=== PATIENT | female | born 1995 | race Caucasian/White ===

== ENCOUNTER 2019-01-14 21:43 | Inpatient (IN) | payer MEDICAID, OTHER ==
[2019-01-15] MEDS: ONDANSETRON 4 MG INJ IV ×3 (00:16→01:02)
[2019-01-15 00:39] LABS: ADD MAN DIFF? NO
[2019-01-15 00:40] LABS: ABNORMAL IP MESSAGE 1; BASOPHIL # 0.2 10^3/ul (0.0-0.1); BASOPHILS % 0.6 % (0.0-2.0); EOSINOPHILS # 0.1 10^3/ul (0.0-0.5); EOSINOPHILS % 0.4 % (0.0-7.0); HEMATOCRIT 33.2 % (37.0-47.0); HEMOGLOBIN 10.9 g/dl (12.0-16.0); LYMPHOCYTES # 4.6 10^3/ul (0.8-2.9); LYMPHOCYTES % 15.2 % (15.0-51.0); MEAN CORPUSCULAR HEMOGLOBIN 29.5 pg (29.0-33.0); MEAN CORPUSCULAR HGB CONC 32.8 g/dl (32.0-37.0); MEAN CORPUSCULAR VOLUME 89.7 fl (82.0-101.0); MEAN PLATELET VOLUME 11.5 fl (7.4-10.4); MONOCYTE # 1.6 10^3/ul (0.3-0.9); MONOCYTES % 5.4 % (0.0-11.0); NEUTROPHIL # 22.9 10^3/ul (1.6-7.5); NEUTROPHILS % 75.9 % (39.0-77.0); PLATELET COUNT 334 10^3/UL (140-415)
[2019-01-15 00:40] LABS: WHITE BLOOD COUNT 30.2 10^3/ul (4.8-10.8)
[2019-01-15 00:46] LABS: ALANINE AMINOTRANSFERASE 21 IU/L (13-69); ALBUMIN/GLOBULIN RATIO 1.66; ALKALINE PHOSPHATASE 50 IU/L (42-121); ANION GAP 20 (5-13); ASPARTATE AMINO TRANSFERASE 19 IU/L (15-46); BILIRUBIN,INDIRECT 0.3 mg/dl (0-1.1); BILIRUBIN,TOTAL 0.3 mg/dl (0.2-1.3); BLOOD UREA NITROGEN 10 mg/dl (7-20); CALCIUM 8.8 mg/dl (8.4-10.2); CARBON DIOXIDE 17 mmol/L (21-31); CHLORIDE 101 mmol/L (97-110); CREATININE 1.33 mg/dl (0.44-1.00); Estimated GFR 50 mL/min (>60); GLUCOSE 353 mg/dl (70-220); LIPASE 64 U/L (23-300); SODIUM 138 mmol/L (135-144); TOTAL PROTEIN 6.4 g/dl (6.1-8.1)
[2019-01-15] MEDS: SOD CHLORIDE 0.9% 1,000 ML IV ×4 (00:47→22:32)
[2019-01-15 00:50] LABS: POSITIVE DIFF @See below
[2019-01-15] MEDS: PIPER-TAZO 3.375 GM IV (PMX) 100 ML IVPB (01:55)
[2019-01-15] MEDS ORDERED: NORepinephrine 8MG/250 ML (PMX 250 ML (02:40)
[2019-01-15] MEDS: NORepinephrine 8MG/250 ML (PMX 250 ML IV (02:56)
[2019-01-15] MEDS: POTASSIUM CHLORIDE 100 ML IVPB (02:58)
[2019-01-15] MEDS ORDERED: FENTAnyl 50 MCG/ML VIAL ×3 (03:04→05:54)
[2019-01-15] MEDS ORDERED: ROCURONIUM 50 MG INJ (03:04)
[2019-01-15] MEDS ORDERED: PROPOFOL 20 ML (03:04)
[2019-01-15] MEDS ORDERED: GLYCOPYRROLATE 0.4 MG INJ (03:04)
[2019-01-15] MEDS ORDERED: CEFAZOLIN 1 GM INJ (03:04)
[2019-01-15] MEDS ORDERED: NEOSTIGMINE 3 MG/3 ML SYRINGE (03:04)
[2019-01-15] MEDS ORDERED: DEXAMETHASONE 4 MG/ML 5 ML INJ (03:05)
[2019-01-15] MEDS ORDERED: MIDAZOLAM 1 MG/ML 2 ML INJ (03:05)
[2019-01-15] MEDS ORDERED: ONDANSETRON 4 MG INJ (03:05)
[2019-01-15 03:43] LABS: IMMEDIATE SPIN CROSSMATCH 1 6
[2019-01-15] MEDS ORDERED: ROPIVACAINE 0.5 % 30 ML VIAL (04:02)
[2019-01-15] MEDS ORDERED: ALBUMIN HUMAN 5% 500 ML (04:10)
[2019-01-15] MEDS ORDERED: SUGAMMADEX SODIUM 200 MG/2 ML VIAL IV (05:40)
[2019-01-15 08:20] LABS: ADD MAN DIFF? NO
[2019-01-15 08:46] LABS: ANION GAP 4 (5-13); BLOOD UREA NITROGEN 8 mg/dl (7-20); CALCIUM 7.1 mg/dl (8.4-10.2); CARBON DIOXIDE 21 mmol/L (21-31); CHLORIDE 114 mmol/L (97-110); CREATININE 0.61 mg/dl (0.44-1.00); Estimated GFR > 60 mL/min (>60); GLUCOSE 112 mg/dl (70-220); POTASSIUM 4.7 mmol/L (3.5-5.1); SODIUM 139 mmol/L (135-144)
[2019-01-15 08:56] LABS: WHITE BLOOD COUNT 19.7 10^3/ul (4.8-10.8)
[2019-01-15 08:56] LABS: BASOPHILS % 0.2 % (0.0-2.0); HEMATOCRIT 32.7 % (37.0-47.0); HEMOGLOBIN 11.3 g/dl (12.0-16.0); LYMPHOCYTES # 1.3 10^3/ul (0.8-2.9); LYMPHOCYTES % 6.7 % (15.0-51.0); MEAN CORPUSCULAR HEMOGLOBIN 29.8 pg (29.0-33.0); MEAN CORPUSCULAR HGB CONC 34.6 g/dl (32.0-37.0); MEAN CORPUSCULAR VOLUME 86.3 fl (82.0-101.0); MEAN PLATELET VOLUME 10.8 fl (7.4-10.4); MONOCYTE # 0.9 10^3/ul (0.3-0.9); MONOCYTES % 4.3 % (0.0-11.0); NEUTROPHIL # 17.3 10^3/ul (1.6-7.5); NEUTROPHILS % 87.7 % (39.0-77.0); RED BLOOD COUNT 3.79 10^6/ul (4.20-5.40); RED CELL DISTRIBUTION WIDTH 13.7 % (11.5-14.5)
[2019-01-15 08:57] LABS: PLATELET COUNT 104 10^3/UL (140-415); POSITIVE DIFF @See below
[2019-01-15] MEDS: HYDROmorphONE 1 MG/ML SYG IV ×5 (09:52→22:02)
[2019-01-16] MEDS: HYDROmorphONE 1 MG/ML SYG IV ×6 (02:23→20:55)
[2019-01-16] MEDS: SOD CHLORIDE 0.9% 1,000 ML IV ×3 (06:11→23:00)
[2019-01-16 06:18] LABS: ADD MAN DIFF? NO
[2019-01-16 06:23] LABS: BASOPHILS % 0.2 % (0.0-2.0); HEMATOCRIT 23.9 % (37.0-47.0); HEMOGLOBIN 8.1 g/dl (12.0-16.0); LYMPHOCYTES # 2.4 10^3/ul (0.8-2.9); LYMPHOCYTES % 18.6 % (15.0-51.0); MEAN CORPUSCULAR HEMOGLOBIN 29.7 pg (29.0-33.0); MEAN CORPUSCULAR HGB CONC 33.9 g/dl (32.0-37.0); MEAN CORPUSCULAR VOLUME 87.5 fl (82.0-101.0); MEAN PLATELET VOLUME 11.2 fl (7.4-10.4); MONOCYTE # 1.1 10^3/ul (0.3-0.9); MONOCYTES % 8.8 % (0.0-11.0); NEUTROPHIL # 9.1 10^3/ul (1.6-7.5); PLATELET COUNT 106 10^3/UL (140-415); RED BLOOD COUNT 2.73 10^6/ul (4.20-5.40); RED CELL DISTRIBUTION WIDTH 14.1 % (11.5-14.5)
[2019-01-16 06:23] LABS: WHITE BLOOD COUNT 12.7 10^3/ul (4.8-10.8)
[2019-01-16 06:45] LABS: ALANINE AMINOTRANSFERASE 18 IU/L (13-69); ALBUMIN 2.7 g/dl (3.3-4.9); ALKALINE PHOSPHATASE 44 IU/L (42-121); ANION GAP 6 (5-13); ASPARTATE AMINO TRANSFERASE 24 IU/L (15-46); BILIRUBIN,INDIRECT 0.5 mg/dl (0-1.1); BILIRUBIN,TOTAL 0.5 mg/dl (0.2-1.3); BLOOD UREA NITROGEN 6 mg/dl (7-20); CALCIUM 7.8 mg/dl (8.4-10.2); CARBON DIOXIDE 25 mmol/L (21-31); CHLORIDE 110 mmol/L (97-110); Estimated GFR > 60 mL/min (>60); GLUCOSE 81 mg/dl (70-220); MAGNESIUM 1.8 mg/dl (1.7-2.5); POTASSIUM 3.7 mmol/L (3.5-5.1); SODIUM 141 mmol/L (135-144); TOTAL PROTEIN 4.8 g/dl (6.1-8.1)
[2019-01-16 07:13] LABS: ADD UMIC YES; UR ASCORBIC ACID NEGATIVE (NEGATIVE); UR BILIRUBIN (Dip) NEGATIVE (NEGATIVE); UR BLOOD (Dip) 1+ mg/dL (NEGATIVE); UR CLARITY CLEAR (CLEAR); UR COLOR STRAW (YELLOW); UR GLUCOSE (Dip) NEGATIVE (NEGATIVE); UR KETONES (Dip) 2+ mg/dL (NEGATIVE); UR LEUKOCYTE ESTERASE (Dip) NEGATIVE Leu/ul (NEGATIVE); UR MUCUS FEW /HPF (NONE SEEN); UR NITRITE (Dip) NEGATIVE (NEGATIVE); UR RBC 1 /HPF (0-5); UR SPECIFIC GRAVITY (Dip) 1.014 (1.003-1.030); UR TOTAL PROTEIN (Dip) NEGATIVE (NEGATIVE); UR UROBILINOGEN (Dip) NEGATIVE (NEGATIVE); UR WBC 4 /HPF (0-5)
[2019-01-16] MEDS: metroNIDAZOLE 500 MG/NS (PMX) 100 ML IVPB ×2 (15:31→20:54)
[2019-01-16] MEDS: FAMOTIDINE 20 MG INJ IV (15:31)
[2019-01-16] MEDS: CIPROFLOXACIN 400MG/D5W 200 ML IVPB (17:09)
[2019-01-16] MEDS: DIPHENHYDRAMINE 50 MG INJ IV (18:47)
[2019-01-17] MEDS: metroNIDAZOLE 500 MG/NS (PMX) 100 ML IVPB ×2 (06:09→13:32)
[2019-01-17] MEDS: SOD CHLORIDE 0.9% 1,000 ML IV ×4 (06:09→22:10)
[2019-01-17 06:18] LABS: ADD MAN DIFF? NO
[2019-01-17 06:20] LABS: BASOPHIL # 0.1 10^3/ul (0.0-0.1); BASOPHILS % 0.5 % (0.0-2.0); EOSINOPHILS # 0.1 10^3/ul (0.0-0.5); EOSINOPHILS % 0.7 % (0.0-7.0); HEMATOCRIT 24.3 % (37.0-47.0); HEMOGLOBIN 8.2 g/dl (12.0-16.0); LYMPHOCYTES # 2.2 10^3/ul (0.8-2.9); LYMPHOCYTES % 23.8 % (15.0-51.0); MEAN CORPUSCULAR HGB CONC 33.7 g/dl (32.0-37.0); MEAN PLATELET VOLUME 10.8 fl (7.4-10.4); MONOCYTE # 0.8 10^3/ul (0.3-0.9); MONOCYTES % 8.8 % (0.0-11.0); NEUTROPHIL # 6.2 10^3/ul (1.6-7.5); NEUTROPHILS % 65.7 % (39.0-77.0); RED BLOOD COUNT 2.73 10^6/ul (4.20-5.40)
[2019-01-17 06:20] LABS: WHITE BLOOD COUNT 9.4 10^3/ul (4.8-10.8)
[2019-01-17 06:51] LABS: PLATELET COUNT 132 10^3/UL (140-415); POSITIVE DIFF @See below
[2019-01-17 06:55] LABS: PHOSPHORUS 2.7 mg/dl (2.5-4.9)
[2019-01-17 06:55] LABS: MAGNESIUM 1.9 mg/dl (1.7-2.5)
[2019-01-17 06:56] LABS: INR 1.12; PROTIME 14.5 Sec (11.9-14.9); PT RATIO 1.1
[2019-01-17 07:06] LABS: ALANINE AMINOTRANSFERASE 21 IU/L (13-69); ALBUMIN 2.9 g/dl (3.3-4.9); ALBUMIN/GLOBULIN RATIO 1.16; ALKALINE PHOSPHATASE 50 IU/L (42-121); ANION GAP 5 (5-13); ASPARTATE AMINO TRANSFERASE 21 IU/L (15-46); BILIRUBIN,INDIRECT 0.4 mg/dl (0-1.1); BILIRUBIN,TOTAL 0.4 mg/dl (0.2-1.3); BLOOD UREA NITROGEN 6 mg/dl (7-20); CALCIUM 8.1 mg/dl (8.4-10.2); CARBON DIOXIDE 28 mmol/L (21-31); CHLORIDE 107 mmol/L (97-110); CREATININE 0.61 mg/dl (0.44-1.00); Estimated GFR > 60 mL/min (>60); GLUCOSE 85 mg/dl (70-220); POTASSIUM 3.5 mmol/L (3.5-5.1); SODIUM 140 mmol/L (135-144); TOTAL PROTEIN 5.4 g/dl (6.1-8.1)
[2019-01-17 08:01] LABS: HEMOGLOBIN A1C 5.4 % (0-5.9)
[2019-01-17] MEDS: FAMOTIDINE 20 MG INJ IV (08:26)
[2019-01-17] MEDS: HYDROCODONE/APAP (10/325) TAB PO (20:53)
[2019-01-17] MEDS: AMOXICILLIN/CLAV 500 MG TAB PO (23:24)
[2019-01-18 05:12] LABS: ADD MAN DIFF? NO
[2019-01-18 05:48] LABS: ANION GAP 7 (5-13); BLOOD UREA NITROGEN 9 mg/dl (7-20); CALCIUM 7.8 mg/dl (8.4-10.2); CARBON DIOXIDE 24 mmol/L (21-31); CHLORIDE 109 mmol/L (97-110); CREATININE 0.46 mg/dl (0.44-1.00); Estimated GFR > 60 mL/min (>60); GLUCOSE 79 mg/dl (70-220); POTASSIUM 3.6 mmol/L (3.5-5.1); SODIUM 140 mmol/L (135-144)
[2019-01-18 08:05] LABS: BASOPHIL # 0.1 10^3/ul (0.0-0.1); BASOPHILS % 0.7 % (0.0-2.0); EOSINOPHILS # 0.3 10^3/ul (0.0-0.5); EOSINOPHILS % 3.4 % (0.0-7.0); HEMATOCRIT 25.6 % (37.0-47.0); HEMOGLOBIN 8.6 g/dl (12.0-16.0); LYMPHOCYTES # 2.2 10^3/ul (0.8-2.9); LYMPHOCYTES % 30.1 % (15.0-51.0); MEAN CORPUSCULAR HEMOGLOBIN 29.7 pg (29.0-33.0); MEAN CORPUSCULAR HGB CONC 33.6 g/dl (32.0-37.0); MEAN CORPUSCULAR VOLUME 88.3 fl (82.0-101.0); MEAN PLATELET VOLUME 10.3 fl (7.4-10.4); MONOCYTE # 0.6 10^3/ul (0.3-0.9); MONOCYTES % 7.8 % (0.0-11.0); NEUTROPHIL # 4.2 10^3/ul (1.6-7.5); NEUTROPHILS % 56.8 % (39.0-77.0); PLATELET COUNT 168 10^3/UL (140-415); RED CELL DISTRIBUTION WIDTH 13.4 % (11.5-14.5)
[2019-01-18 08:05] LABS: WHITE BLOOD COUNT 7.4 10^3/ul (4.8-10.8)
[2019-01-18] MEDS: FAMOTIDINE 20 MG TAB PO (08:51)
[2019-01-18] MEDS: AMOXICILLIN/CLAV 500 MG TAB PO (08:51)
== END 2019-01-18 10:35 | disposition home or self-care (01) | DRG 817 ==
LOC: E/R 21:43 → MS1 01-17 15:45 → SDS 01-15 02:53 → MS1 01-17 16:21 → SDS 01-15 03:14 → ICU 01-15 06:13 → TEL 01-15 16:00
PROVIDERS: Pediatrics
PROC: 10T20ZZ Resection of Products of Conception, Ectopic, Open Approach (ICD-10-PCS; principal; 2019-01-15 02:25)
PROC: 0UT60ZZ Resection of Left Fallopian Tube, Open Approach (ICD-10-PCS; 2019-01-15 02:25)
PROC: 02H633Z Insertion of Infusion Device into Right Atrium, Percutaneous Approach (ICD-10-PCS; 2019-01-15 03:07)
PROC: 30233N1 Transfusion of Nonautologous Red Blood Cells into Peripheral Vein, Percutaneous Approach (ICD-10-PCS; 2019-01-15 03:07)
DX: O00.102 Left tubal pregnancy without intrauterine pregnancy (principal); O08.3 Shock following ectopic and molar pregnancy; R65.11 Systemic inflammatory response syndrome (SIRS) of non-infectious origin with acute organ dysfunction; N17.9 Acute kidney failure, unspecified; D62 Acute posthemorrhagic anemia; O08.1 Delayed or excessive hemorrhage following ectopic and molar pregnancy; E87.6 Hypokalemia; R73.9 Hyperglycemia, unspecified; D69.6 Thrombocytopenia, unspecified
CPT/HCPCS: 36415; 36430; 71045; 76801; 76817; 80048; 80053; 80076; 81001; 83036; 83690; 83735; 84100; 84443; 84702; 85025; 85610; 86850; 86900; 86901; 86920; 87086; 88305; 96361; 96365; 96375; 99285-25

== ENCOUNTER 2019-05-11 11:29 | Emergency (ER) | payer MEDICAID ==
[2019-05-11 12:21] LABS: ADD MAN DIFF? NO
[2019-05-11 12:35] LABS: BASOPHIL # 0.1 10^3/ul (0.0-0.1); BASOPHILS % 0.9 % (0.0-2.0); EOSINOPHILS # 0.1 10^3/ul (0.0-0.5); HEMATOCRIT 40.6 % (37.0-47.0); HEMOGLOBIN 13.1 g/dl (12.0-16.0); LYMPHOCYTES # 2.4 10^3/ul (0.8-2.9); LYMPHOCYTES % 33.5 % (15.0-51.0); MEAN CORPUSCULAR HEMOGLOBIN 26.8 pg (29.0-33.0); MEAN CORPUSCULAR HGB CONC 32.3 g/dl (32.0-37.0); MEAN CORPUSCULAR VOLUME 83.2 fl (82.0-101.0); MEAN PLATELET VOLUME 10.5 fl (7.4-10.4); MONOCYTE # 0.4 10^3/ul (0.3-0.9); MONOCYTES % 6.3 % (0.0-11.0); NEUTROPHILS % 56.9 % (39.0-77.0); PLATELET COUNT 288 10^3/UL (140-415); RED BLOOD COUNT 4.88 10^6/ul (4.20-5.40); RED CELL DISTRIBUTION WIDTH 14.3 % (11.5-14.5)
[2019-05-11 12:41] LABS: ADD UMIC YES; UR ASCORBIC ACID 20 mg/dL (NEGATIVE); UR BACTERIA FEW /HPF (NONE SEEN); UR BILIRUBIN (Dip) NEGATIVE (NEGATIVE); UR BLOOD (Dip) NEGATIVE (NEGATIVE); UR CLARITY CLOUDY (CLEAR); UR COLOR YELLOW (YELLOW); UR GLUCOSE (Dip) NEGATIVE (NEGATIVE); UR KETONES (Dip) NEGATIVE (NEGATIVE); UR LEUKOCYTE ESTERASE (Dip) TRACE Leu/ul (NEGATIVE); UR MUCUS FEW /HPF (NONE SEEN); UR NITRITE (Dip) NEGATIVE (NEGATIVE); UR RBC 2 /HPF (0-5); UR SPECIFIC GRAVITY (Dip) 1.026 (1.003-1.030); UR SQUAMOUS EPITHELIAL CELL MANY /HPF (FEW); UR TOTAL PROTEIN (Dip) NEGATIVE (NEGATIVE); UR UROBILINOGEN (Dip) NEGATIVE (NEGATIVE); UR WBC 1 /HPF (0-5)
[2019-05-11 12:59] LABS: ALANINE AMINOTRANSFERASE 8 IU/L (13-69); ALBUMIN/GLOBULIN RATIO 1.17; ALKALINE PHOSPHATASE 60 IU/L (42-121); ANION GAP 7 (5-13); ASPARTATE AMINO TRANSFERASE 20 IU/L (15-46); BILIRUBIN,INDIRECT 0.2 mg/dl (0-1.1); BILIRUBIN,TOTAL 0.2 mg/dl (0.2-1.3); BLOOD UREA NITROGEN 14 mg/dl (7-20); CARBON DIOXIDE 24 mmol/L (21-31); CHLORIDE 107 mmol/L (97-110); CREATININE 0.49 mg/dl (0.44-1.00); Estimated GFR > 60 mL/min (>60); GLUCOSE 107 mg/dl (70-220); LIPASE 42 U/L (23-300); SODIUM 138 mmol/L (135-144); TOTAL PROTEIN 7.4 g/dl (6.1-8.1)
== END 2019-05-11 14:36 | disposition home or self-care (01) ==
LOC: FTE 14:36
DX: R10.2 Pelvic and perineal pain (principal)
CPT/HCPCS: 74176; 76705; 76856; 80053; 81001; 81025; 83690; 85025; 99284-25